=== PATIENT | male | born 1955 | race Caucasian/White ===

== ENCOUNTER 2023-01-17 13:43 | Emergency (ER) | payer BC, MEDICAID ==
[~2023-01-17] VITALS: Ht 182.9 cm; Wt 83.5 kg
[~2023-01-17 13:43] MED LIST: ALBU2.5V13 NEB; ASCO-352 PO; RIVA10TA PO
[2023-01-17] MEDS ORDERED: CYCLOBENZAPRINE 10 MG TABLET ONE (14:27)
[2023-01-17 14:28] VITALS: TEMP 98
[2023-01-17] MEDS ORDERED: CYCLOBENZAPRINE 10 MG TABLET PO ONE (14:30)
[2023-01-17] MEDS ORDERED: CYCL10TA9 PO (15:31)
[2023-01-17 15:38] VITALS: BP 131/67; O2SAT 100
== END 2023-01-17 15:39 | disposition home or self-care (01) ==
LOC: ER 13:47
DX: S80.211A Abrasion, right knee, initial encounter (principal); M25.511 Pain in right shoulder; M25.512 Pain in left shoulder; M62.838 Other muscle spasm; V89.2XXA Person injured in unspecified motor-vehicle accident, traffic, initial encounter; Y93.89 Activity, other specified; Y92.89 Other specified places as the place of occurrence of the external cause; Y99.8 Other external cause status
CPT/HCPCS: 73030-TC

== ENCOUNTER 2025-04-15 16:47 | Emergency (ER) | payer SELFPAY ==
[~2025-04-15] VITALS: Ht 182.9 cm; Wt 80.3 kg
[~2025-04-15 16:47] MED LIST changes: +CYCL10TA9 PO
[2025-04-15 17:21] VITALS: BP 141/73; TEMP 98.3; O2SAT 97
[2025-04-15] MEDS ORDERED: KETOROLAC TROMETHAMINE INJ 30 MG/ML VIAL ONE (17:43)
[2025-04-15] MEDS: KETOROLAC TROMETHAMINE INJ 30 MG/ML VIAL IM ONE (17:48)
== END 2025-04-15 18:27 | disposition home or self-care (01) ==
LOC: ER 16:53
DX: S46.912A Strain of unspecified muscle, fascia and tendon at shoulder and upper arm level, left arm, initial encounter (principal); X50.0XXA Overexertion from strenuous movement or load, initial encounter; Y93.89 Activity, other specified; Y92.89 Other specified places as the place of occurrence of the external cause; Y99.8 Other external cause status
CPT/HCPCS: 99283; 96372; 73030; J1885